=== PATIENT | male | born 1980 | race Caucasian/White ===

== ENCOUNTER 2024-11-20 14:23 | Emergency (ER) | payer MEDICAID, SELFPAY ==
--- NOTE | 2024-11-20 15:02 | PC.NURSE ---
pt decided to leave . he wanted a detox bed. pt walked out
--- NOTE | 2024-11-20 15:04 | PC.NURSE ---
PT STATED, I AM LEAVING BECAUSE THE DOCTOR TOLL ME THAT THIS HOSPITAL DON'T HAVE DETOX C[facility], AND PT JUST WALK OUT, I WAS UNABLE TO EDUCATE THE PT DUE TO HIM WALKING [facility].
== END 2024-11-20 15:14 | disposition left against medical advice (07) ==
PROVIDERS: Emergency Provider Internal Medicine
DX: Z53.21 Procedure and treatment not carried out due to patient leaving prior to being seen by health care provider (principal)
CPT/HCPCS: 99283

== ENCOUNTER 2025-01-03 19:37 | Emergency (ER) | payer MEDICAID, SELFPAY ==
[2025-01-03 19:40] VITALS: BMI 26.6
[2025-01-03 19:41] VITALS: BP 125/81; PULSE 96; RESP 18; TEMP 37; O2SAT 94
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
[2025-01-03 20:22] VITALS: BP 119/77; PULSE 83; RESP 17; TEMP 36.8; O2SAT 95
[2025-01-03 21:02] VITALS: BP 119/77; PULSE 99; RESP 18; O2SAT 96
== END 2025-01-03 21:04 ==
LOC: SERX 20:33
PROVIDERS: Emergency Provider Emergency Medicine
DX: Z02.89 Encounter for other administrative examinations (principal); S52.502A Unspecified fracture of the lower end of left radius, initial encounter for closed fracture; S29.9XXA Unspecified injury of thorax, initial encounter; V23.49XA Other motorcycle driver injured in collision with car, pick-up truck or van in traffic accident, initial encounter
CPT/HCPCS: 71045; 73110; 99282